=== PATIENT | female | born 1985 | race Caucasian/White ===

== ENCOUNTER → 2019-05-21 15:39 | Outpatient (BNVA) | payer OTHER, SELFPAY | PROVIDERS: Family Provider Family Medicine; PCP Family Medicine; Visit Provider Obstetrics & Gynecology | DX: Z01.89 Encounter for other specified special examinations (principal) | CPT/HCPCS: 84315 ==

== ENCOUNTER → 2019-05-26 15:07 | Outpatient (BNVA) | payer OTHER, SELFPAY | PROVIDERS: Family Provider Family Medicine; PCP Family Medicine; Visit Provider Obstetrics & Gynecology | DX: Z34.82 Encounter for supervision of other normal pregnancy, second trimester (principal) | CPT/HCPCS: 76816 ==

== ENCOUNTER → 2019-06-11 14:35 | Outpatient (BNVA) | payer OTHER, SELFPAY | PROVIDERS: Family Provider Family Medicine; PCP Family Medicine; Visit Provider Obstetrics & Gynecology | DX: O09.892 Supervision of other high risk pregnancies, second trimester (principal); Z3A.27 27 weeks gestation of pregnancy | CPT/HCPCS: 82950; 84315; 85027 ==

== ENCOUNTER → 2019-07-02 15:33 | Outpatient (BNVA) | payer OTHER, SELFPAY | PROVIDERS: Family Provider Family Medicine; PCP Family Medicine; Visit Provider Obstetrics & Gynecology | DX: Z01.89 Encounter for other specified special examinations (principal) | CPT/HCPCS: 84315 ==

== ENCOUNTER → 2019-07-16 11:09 | Outpatient (BNVA) | payer OTHER, SELFPAY | PROVIDERS: Family Provider Family Medicine; PCP Family Medicine; Visit Provider Obstetrics & Gynecology | DX: O09.893 Supervision of other high risk pregnancies, third trimester (principal); O36.5930 Maternal care for other known or suspected poor fetal growth, third trimester, not applicable or unspecified | CPT/HCPCS: 76816; 76820; 84315 ==

== ENCOUNTER → 2019-07-22 10:19 | Outpatient (BNVA) | payer OTHER, SELFPAY | PROVIDERS: Family Provider Family Medicine; PCP Family Medicine; Visit Provider Obstetrics & Gynecology | DX: O36.5930 Maternal care for other known or suspected poor fetal growth, third trimester, not applicable or unspecified (principal) | CPT/HCPCS: 76819; 76820 ==

== ENCOUNTER → 2019-07-28 08:49 | Outpatient (BNVA) | payer OTHER, SELFPAY | PROVIDERS: Family Provider Family Medicine; PCP Family Medicine; Visit Provider Obstetrics & Gynecology Female Pelvic Medicine and Reconstructive Surgery | DX: O36.5930 Maternal care for other known or suspected poor fetal growth, third trimester, not applicable or unspecified (principal) | CPT/HCPCS: 76819; 76820; 84315 ==

== ENCOUNTER → 2019-08-03 08:10 | Outpatient (BNVA) | payer OTHER, SELFPAY | PROVIDERS: Family Provider Family Medicine; PCP Family Medicine; Visit Provider Obstetrics & Gynecology | DX: Z36.89 Encounter for other specified antenatal screening (principal) | CPT/HCPCS: 76816; 76819 ==

== ENCOUNTER → 2019-08-13 10:23 | Outpatient (BNVA) | payer OTHER, SELFPAY | PROVIDERS: Family Provider Family Medicine; PCP Family Medicine; Visit Provider Obstetrics & Gynecology | DX: O09.893 Supervision of other high risk pregnancies, third trimester (principal); Z3A.35 35 weeks gestation of pregnancy | CPT/HCPCS: 76816; 76819; 76820; 84315; 87081 ==

== ENCOUNTER → 2019-08-20 09:33 | Outpatient (BNVA) | payer OTHER, SELFPAY | PROVIDERS: Family Provider Family Medicine; PCP Family Medicine; Visit Provider Obstetrics & Gynecology | DX: Z34.80 Encounter for supervision of other normal pregnancy, unspecified trimester (principal) | CPT/HCPCS: 76816; 76819; 76820; 84315; 87081 ==

== ENCOUNTER → 2019-08-27 08:57 | Outpatient (BNVA) | payer OTHER, SELFPAY | PROVIDERS: Family Provider Family Medicine; PCP Family Medicine; Visit Provider Obstetrics & Gynecology | DX: Z34.90 Encounter for supervision of normal pregnancy, unspecified, unspecified trimester (principal) | CPT/HCPCS: 76819; 76820; 84315 ==

== ENCOUNTER 2019-09-01 05:14 | Inpatient (IN) | payer OTHER, SELFPAY ==
[2019-09-01] VITALS (26 sets, daily range): BP systolic 97–117; BP diastolic 61–81; PULSE 54–74; RESP 16–18; TEMP 35.8–36.8; O2SAT 98–100; BMI 23.6
[2019-09-01] MEDS: lactated ringers 1,000 ML 999 ML IV ×2 (06:03→06:38)
[2019-09-01 06:04] LABS: Basophils % 0.6 %; Eosinophils # 0.2 10^3/uL (0.0-0.8); Eosinophils % 2.3 %; Hematocrit 35.4 % (37.0-47.0); Hemoglobin 12.2 g/dL (11.5-15.3); Lymphocytes # 1.9 10^3/uL (0.8-4.8); Lymphocytes % 26.7 %; Mean Corpuscular HGB Conc 34.5 g/dL (30.0-36.0); Mean Corpuscular Hemoglobin 33.2 pg (28.0-34.0); Mean Corpuscular Volume 96.2 fL (81-99); Mean Platelet Volume 10.7 fL (7.4-10.4); Monocytes # 0.7 10^3/uL (0.2-0.9); Monocytes % 10.3 %; Neutrophils # 4.2 10^3/uL (1.8-7.7); Neutrophils % 58.8 %; Nucleated Red Blood Cells % 0 %; Platelet Count 190 10^3/cmm (130-400); Red Blood Count 3.68 10^6/uL (4.1-5.3); Red Cell Distribution Width 13.3 % (12.1-15.1); White Blood Count 7.1 10^3/uL (4.0-10.0)
--- NOTE | 2019-09-01 06:29 | ANES.PREANE2 ---
Pre-Anesthetic Assessment Pre-Anesthetic Assessment: Height/Weight: Height 1.63 m Weight 62.596 kg Temp Resp 98.3 F 18 09/01/19 05:30 09/01/19 05:30 Proposed Procedure: Operation Date: 09/01/19 07:00 Proposed Procedures p Section Repeat With Bilateral tubal ligation with complete salpingectomy [id number] Z34.90 Z98.891 Z30.2(Bilateral) - Brian Harding MD Familial anesthetic complications: None Was Beta Collette taken within 24 hours: N/A Last intake: Intake Last Liquid Date 08/31/19 Last Liquid Time 00:00 Last Solid Date 08/31/19 Last Solid Time 21:00 Social: Social History: No alcohol and No tobacco Exam: Pre-Anes Outpt Exam: alert, oriented x 3, clear to auscultation bilaterally and regular rate & rhythm Airway: Cervical ROM: WNL MP: 1 Dentition: Full Pulmonary: Pulmonary: None reported CV/HEM: CV/HEM: Murmur : : None reported Hepatic: Hepatic: None reported GI: GI: GERD Metabolic: Comments: MTHFR mutation Musc/skel: Musc/skel: None reported Neuropsych: Neuropsych: None reported Anesthetic Plan: ASA status: 2 Anesthesia: Regional (specify below) Other: spinal Risk of > 500 ml blood loss (7ml/kg in children): Yes, adequate IV access and fluids planned Meds/Allergies Current Medications: Current Medications Generic Name Dose Route Start Last Admin Trade Name Freq PRN Reason Stop Dose Admin Lactated Ringer's 1,000 mls @ 999 m ls/hr 09/01/19 05:47 09/01/19 06:03 Lactated Ringers IV 999 mls/hr .Q1H1M PRN Administration ANESTHESIA PFSH Anesthesia PFSH: Social History Smoking and tobacco status: never smoked Alcohol intake: never Substance/Drug Use: never Marital status: Female Reproductive History: : 5 Data Anesthesia CBC & Chem 7: 09/01/19 05:40 Other Labs: Laboratory Results - last 48 hr 09/01/19 05:40 WBC 7.1 RBC 3.68 L Hgb 12.2 Hct 35.4 L MCV 96.2 MCH 33.2 MCHC 34.5 RDW 13.3 Plt Count 190 MPV 10.7 H Neut % (Auto) 58.8 Lymph % (Auto) 26.7 [place] % (Auto) 10.3 Eos % (Auto) 2.3 Baso % (Auto) 0.6 Neut # (Auto) 4.2 Lymph # (Auto) 1.9 [place] # (Auto) 0.7 Eos # (Auto) 0.2 Baso # (Auto) 0.0 Nucleated RBC % (auto) 0 Nucleated RBCs # 0.0 Cardiac Studies: No Data to Display
[2019-09-01] MEDS: famotidine 20 mg/2 mL INJ IVP (06:38)
[2019-09-01] MEDS: citric acid-sodium citrate 30 mL UDC PO (06:38)
[2019-09-01] MEDS: metoclopramide 5 mg/mL SDV 2 mL 10 MG IVP (06:38)
--- NOTE | 2019-09-01 07:04 | W.PM.OPSUD ---
Surgery/Procedure H&P Update DATE OF PROCEDURE: September 01, 2019 DATE H&P PERFORMED: 08/27/19 H&P UPDATE INFORMATION: I have reviewed H&P completed within last 30 days, I have examined patient prior to procedure, No changes to prior documentation and H&P is in [facility] on date indicated PREOP DIAGNOSIS: Previous section-declines , Undesired fertility PRIMARY INDICATION FOR PROCEDURE: Repeat section, Bilateral complete salpingectomy PLANNED PROCEDURE: Operation Date: 09/01/19 07:00 Proposed Procedures p Section Repeat With Bilateral tubal ligation with complete salpingectomy [id number] Z34.90 Z98.891 Z30.2(Bilateral) - Brian Harding MD
--- NOTE | 2019-09-01 09:17 | ANE.PACU2 ---
 Inpatient post-anesthesia follow up: Airway intact: Yes Vital signs: Temperature 98.3 F Pulse Rate 68 Respiratory Rate 18 Blood Pressure 106/68 Pulse Oximetry Oxygen Delivery Me thod Room Air Oxygen Flow Rate Fraction of Inspir ed Oxygen Hydration adequate: Yes Nausea and vomiting: No Pain level: 1 Mental status: Baseline
--- NOTE | 2019-09-01 09:23 | PM.OP ---
Operative Report Date of procedure: September 01, 2019 Pre-op Diagnosis: Previous section-declines , Undesired fertility Pre-op Diagnosis: Small for gestational age fetus complicating in third trimester, Advanced maternal age, term at 39-2/7 weeks gestation Post-op Diagnosis: 1. Previous section, declines , 2. Small for gestational age fetus complicating , 3. at 39-2/7 weeks gestation, 4. Advanced maternal age, 5. Undesired fertility, 6. Viable male infant Procedure Done: Repeat low transverse section, Complete bilateral salpingectomy. Specimens removed/disposition: Right and left fallopian tubes Surgeon: Brian Harding Parts Salesperson: Sushma Cueva MS3 Anesthesia: Other (Spinal) Estimated blood loss (mL): 700 Complications: None Findings: 1. Viable male , cephalic presentation, weighing 6 pounds 3 ounces (2815 g) with a length of 19 inches and Apgars of 9 at 1 minute and 9 at 5 minutes. 2. Normal-appearing uterus tubes and ovaries. 3. Posterior fundal subserosal fibroid measuring approximately the 2-1/2 cm in diameter. Brief History: Patient is a 34-year-old white female 5, para 2-0-2-2 with an LMP of 11/29/2018 and an EDC of 09/05/2019 based on LMP and consistent with ultrasound, which placed her at 39-2/7 weeks gestation. Patient presented to labor and delivery for repeat section. She had had 2 prior sections and was declining . She had also stated during that she did not want any further children and wanted to proceed with sterilization. Sterilization methods had been discussed with her and she wished to have both tubes completely removed. Questions were answered. Patient wished to proceed with surgery. Procedure: Patient was taken to the operating room where spinal anesthesia was obtained. She was prepped and draped in the usual sterile fashion in a dorsal supine position with a leftward tilt. [place] catheter and sequential compression boots had been placed prior to starting the case. A Pfannenstiel skin incision was made with a knife and carried down to the underlying fascia with the knife. Fascia was incised in the midline with the knife and extended laterally with [place] scissors. Superior aspect of the fascia was grasped with Ke[place] clamps, elevated, and sharply and bluntly dissected. The inferior aspect of the fascia was grasped with [place] clamps, elevated, and sharply and bluntly dissected. The rectus muscles were in the midline. Peritoneum was sharply entered. Peritoneal incision was extended both superiorly and inferiorly with good visualization of the bladder. Bladder blade was inserted. The vesicouterine peritoneum was tented up and sharply entered. It was extended laterally and the bladder flap was created digitally. Bladder blade was reinserted. A transverse incision was made with the knife in the lower uterine segment. Clear fluid was obtained upon entry into the uterine cavity. The infant's head was delivered and no nuchal cords were noted. The rest of the delivered atraumatically. Nose and mouth were suctioned with bulb suction. Cord was clamped and cut and the infant was handed off to Dr. Ramírez and the waiting nurses. Cord blood was obtained. Placenta was delivered via uterine massage. Patient received 20 units of Pitocin in the IV fluids. The uterus was exteriorized and cleared of clots and debris. The uterine incision was closed in a running locking fashion using 0 Vicryl suture. The uterine vessels at the edge of the incision were bleeding and tied with stitches above and below the level of the incision with 0 chromic suture incorporating the side of the uterus into the stitch. This brought the bleeding under control. The incision was imbricated using 0 Vicryl suture in a horizontal mattress fashion. The incision was inspected and noted to be hemostatic. The left fallopian tube was grasped with [place] clamps. The mesosalpinx was transilluminated, identifying the vessels coming to the tubes. Using 2-0 chromic suture, the vessels coming through the mesosalpinx to the fallopian tube were individually tied. The proximal end of the tube was tied with a free tie of 0 plain suture. The vessels at the distal end of the tube were tied with a free tie of 0 plain suture. The mesosalpinx was then cut and the tube completely excised. The right fallopian tube was grasped with [place] clamps. The mesosalpinx was transilluminated with no significant vessels noted within the mesosalpinx. The mesosalpinx was cut with electrocautery and the proximal end of the tube was tied with a free tie of 0 plain suture. The vessels at the distal end of the tube were tied with a free tie of 0 plain suture. The pedicle at the distal end was cut and the tube adjacent to the uterus was then cut, completely excising the tube. Posterior cul-de-sac was thoroughly irrigated and cleared of clots and blood. The uterus was returned to the abdomen. The uterine incision was irrigated and noted to be hemostatic. The gutters were cleared of clots and blood. The rectus muscles and peritoneum were reapproximated in the midline using interrupted stitches of 2-0 Vicryl suture. The muscle layer was irrigated and noted to be hemostatic. The fascia was reapproximated using 0 Vicryl suture in a running fashion. The subcutaneous layer was irrigated and brought to hemostasis using electrocautery. It was reapproximated using 3-0 plain suture in an interrupted fashion. Skin was reapproximated using 4-0 Vicryl suture in a subcuticular fashion. Steri-Strips were applied. Patient tolerated the procedures well. Sponge, needle, and instrument counts were correct. DRAINS: [place] catheter POSTOPERATIVE STATUS: The patient was left to recover in satisfactory condition
--- NOTE | 2019-09-01 10:02 | PC.NURSE ---
0900 pt remains in post op
[2019-09-01] MEDS: ketorolac 30 mg/mL INJ IVP (12:49)
--- NOTE | 2019-09-01 14:27 | PC.NURSE ---
1415 PT UP TO CHAIR DID VERY WELL.
[2019-09-01] MEDS: diphenhydrAMINE 50 mg/mL SDV 1mL 25 MG IVP (15:01)
[2019-09-01] MEDS: HYDROcodone-acetaminophen 5-325 mg Tablet PO (18:25)
[2019-09-01] MEDS: docusate sodium 100 mg Capsule PO ×3 (18:26→18:30)
[2019-09-01 22:04] LABS: Hematocrit 30.7 % (37.0-47.0); Hemoglobin 10.4 g/dL (11.5-15.3); Mean Corpuscular HGB Conc 33.9 g/dL (30.0-36.0); Mean Corpuscular Hemoglobin 33.3 pg (28.0-34.0); Mean Corpuscular Volume 98.4 fL (81-99); Platelet Count 156 10^3/cmm (130-400); Red Blood Count 3.12 10^6/uL (4.1-5.3); Red Cell Distribution Width 13.4 % (12.1-15.1); White Blood Count 9.8 10^3/uL (4.0-10.0)
[2019-09-02 05:00] VITALS: BP 111/70; PULSE 68; RESP 17; TEMP 36.4; O2SAT 99
[2019-09-02] MEDS: prenatal vitamin Capsule 1 CAP PO (09:18)
[2019-09-02] MEDS: docusate sodium 100 mg Capsule PO (09:18)
[2019-09-02 10:00] VITALS: BP 117/80; PULSE 69; RESP 16; TEMP 36.6; O2SAT 99
--- NOTE | 2019-09-02 10:07 | P.PN_ITS ---
Documented by User: Sushma Cueva 09/02/19 10:19 Subjective Subjective: Interval history: Walked the halls several times yesterday evening and this morning. Had some lightheadedness yesterday afternoon but has improved. is going well. She has some pain at her surgical site when walking and up to 5/10 in intensity, but it improves with rest. She has taken a few pain pills but feels the ibuprofen is doing a better job of controlling the pain. Her catheter came out yesterday afternoon. She tolerated solid foods at breakfast this morning. Vitals/I&O/Wt Last Vital Signs Temp 97.6 F 09/02/19 05:00 Pulse 68 09/02/19 05:00 Resp 17 09/02/19 05:00 BP 111/70 09/02/19 05:00 Pulse Ox 99 09/02/19 05:00 09/01/19 09/02/19 09/02/19 22:59 06:59 14:59 Intake Total 500 / 1500 Output Total 1000 / 1850 900 / 2750 Balance -500 / -350 -900 / -1250 Weight last 48 hrs Weight 138 lb Physical Exam Const: COMMON NORMALS: no acute distress, patient oriented x3 and alert GENERAL APPEARANCE: cooperative and comfortable HENMT: COMMON NORMALS: normocephalic, atraumatic and hearing grossly normal bilaterally HEAD & SCALP: normocephalic and atraumatic Eye: COMMON NORMALS: EOMs intact bilaterally Neck/C-Spine: COMMON NORMALS: full ROM and no JVD Chest: CHEST: Yes Symmetrical chest wall rise Resp: COMMON NORMALS: normal respiratory effort, No retractions and No use of accessory muscles Cardio: COMMON NORMALS: no JVD, regular rate, regular rhythm, S1 normal heart sound present, S2 normal heart sound present, No gallops present (Cardio), No murmurs present (Cardio) and No rub (Cardio) RATE: regular rate RHYTHM: regular rhythm HEART SOUNDS: S1 normal heart sound present and S2 normal heart sound present GI: COMMON NORMALS: negative for non-tender (tender to palpation ) INSPE CTION: Yes abdominal distension Extremity: COMMON NORMALS: normal to inspection and full ROM Neuro: COMMON NORMALS: patient oriented x3 SENSORIUM/ORIENTATION: Yes alert Psych: COMMON NORMALS: mental status grossly normal, Normal thought process present, cooperative, normal affect and speech normal SPEECH: Yes normal speech THOUGHT PROCESS: Normal thought process present Skin: COMMON NORMALS: no rashes or lesions noted GENERAL SKIN EXAM: no rashes or lesions noted Urinary Catheter Management^: [place]: Cath Placed During This Visit: yes, but has since been removed by the nurse Reason for Continuing Indwelling Catheter: Accurate Measurement of Urinary Output in Critically Ill Patients Urinary Catheter Date of Insertion: 09/01/19 Urinary Catheter Time of Insertion: 07:18 Date Urinary Catheter Removed: 09/01/19 Time Urinary Catheter Discontinued: 18:30 Data : 09/01/19 21:20 A&P Assessment and plan (1) Contraception management: S/P BTL Status: Acute Qualifiers: Contraceptive encounter type: other general counseling and advice Qualified Code(s): Z30.09 - Encounter for other general counseling and advice on contraception (2) Multigravida of advanced maternal age: S/P section Continue to advance diet as tolerated Continue pain medication as needed (Ledbetter 5-325 mg 1-2 tab PO Q4H PRN and ibuprofen as needed) Continue activity as tolerated with no lifting heavier than baby and no driving until off pain medications and comfortable Nothing in the vagina for 6 weeks Return to clinic in 2 weeks Status: Acute Qualifiers: Trimester: second trimester Qualified Code(s): O09.522 - Supervision of elderly multigravida, second trimester Coding Level of Care Code Acute Data Designer for Chg Fwd Exam Comprehensive Diagnoses Contraception management Z30. Contraceptive encounter type: other general counseling and advice Multigravida of advanced maternal age O09.522 Trimester: second trimester Previous , delivered, current hospitalization O34.219 Documented by User: Brian Harding MD 09/02/19 12:55 Subjective Subjective: Interval history: Reports doing well. States bleeding has slowed. Reports tolerating regular diet without nausea or vomiting. Reports passing flatus. Denies problems with urination. Denies lightheadedness or dizziness with ambulation. Reports pain is been well controlled. Denies shortness of breath or chest pains. Requesting to go home this afternoon if possible. Physical Exam Const: COMMON NORMALS: no acute distress, patient oriented x3 and well nourished Resp: COMMON NORMALS: clear to auscultation bilaterally AUSCULTATION: clear to auscultation bilaterally Cardio: COMMON NORMALS: regular rate, regular rhythm, No gallops present (Cardio) and No rub (Cardio) RATE: regular rate RHYTHM: regular rhythm GI: COMMON NORMALS: Soft to palpation, No hepatosplenomegaly present and no masses (Except for mildly tender uterus approximately 2 fingerbreadths below umbilicus.) INSPECTION: Yes incision (Dressing dry.) AUSCULTATION: Yes normoactive bowel sounds PALPATION: Yes Soft to palpation, Yes Tenderness to palpation present (GI) (Lower abdomen.) and Yes No hepatosplenomegaly present Extremity: COMMON NORMALS: no calf tenderness GENERAL: Yes edema (1+ lower extremity) Neuro: COMMON NORMALS: patient oriented x3 Psych: APPEARANCE: Yes grossly normal MOOD & AFFECT: Yes euthymic mood Urinary Catheter Management^: [place]: Cath Placed During This Visit: no Data : 09/01/19 21:20 A&P Assessment and plan (1) Previous , delivered, current hospitalization: Status: Acute Additional A&P Information Postoperative day 1, status post repeat section. Patient doing well overall. Pain currently controlled with Duramorph. Has started oral medications. Increase activities today. May shower. If does well through the day, then probable discharge this evening. After medical student, Sushma Cueva, MS3, obtained patient's History Of Present Illness, I reviewed the pertinent information with the patient regarding HPI and her history. I was physically present for the performance of the Physical Exam and reviewed the Plan of Care with the patient. I personally reviewed the documented note with the medical student and agree with the documented History, Physical Exam, and Assessment and Plan. Attestations Medical Necessity Statement*: Patient had section yesterday. Coding Level of Care Code Acute Data Designer for Dianag Fwd Exam Comprehensive Diagnoses Contraception management Z30.09 Contraceptive encounter type: other general counseling and advice Multigravida of advanced maternal age O09.522 Trimester: second trimester Previous , delivered, current hospitalization O34.219
--- NOTE | 2019-09-02 11:15 | ANE.PACU2 ---
Inpatient post-anesthesia follow up: Airway intact: Yes Vital signs: Temperature 97.6 F Pulse Rate 68 Respiratory Rate 17 Blood Pressure 111/70 Pulse Oximetry 99 Oxygen Delivery Me thod Room Air Oxygen Flow Rate Fraction of Inspir ed Oxygen Hydration adequate: Yes Nausea and vomiting: No Pain level: 2 Mental status: Baseline Additional Comments: urinating ok, walking, no LE weakness or numbness, no signs of infection at spinal site, no headaches
[2019-09-02] MEDS: acetaminophen 325 mg Tablet 650 MG PO (14:24)
[2019-09-02 16:00] VITALS: BP 96/57; PULSE 69; RESP 16; TEMP 36.8; O2SAT 99
[2019-09-02] MEDS: HYDROcodone-acetaminophen 5-325 mg Tablet PO (16:28)
--- NOTE | 2019-09-02 17:36 | PM.DCS ---
Discharge Providers Date of Admission: 09/01/19 05:14 Date of Discharge: September 02, 2019 Attending Provider at Admission: Brian Harding MD Attending Provider at Discharge: Brian Harding MD Primary Care Provider: Luis Antonio Mena MD Diagnoses at Discharge Discharge Diagnosis (1) Previous , delivered, current hospitalization: Status: Acute Reason for Visit Reason for Visit: Reason For Visit: Intrauterine ,Previous ceserean section,U Hospital Course Hospital Course: Patient is a 34-year-old white female 5, para 2-0-2-2 with an LMP of 11/29/2018 and an EDC of 09/05/2019 based on LMP and consistent with ultrasound, which placed her at 39-2/7 weeks gestation. Patient had had a prior section and was declining . Her had also been complicated by a small for gestational age fetus and advanced maternal age. Patient had also decided that she did not want any further children and wanted to proceed with sterilization with complete removal of the tubes at the time of her section. A repeat low transverse section with complete bilateral salpingectomy was performed on 09/01/2019. She had a viable male weighing 6 pounds 3 ounces (2815 g) with a length of 19 inches and Apgars of 9 at 1 minute and 9 at 5 minutes. Patient tolerated procedure well. She was given Duramorph in her spinal for pain management following surgery. On postoperative day 1, patient was doing well. She was tolerating a regular diet without nausea vomiting. Her pain had been well controlled that morning with Duramorph. She denied any shortness of breath or chest pains. She was ambulating without lightheadedness or dizziness. She was urinating without difficulty. Her bleeding was slowing. She was afebrile with stable vital signs. Her activities were increased through the day and she was switched to oral pain medication. This did well for her. She was requesting to be released on the evening of postoperative day 1 and she was discharged home. Discharge instructions was discussed with the patient. She was to follow-up in the office in 2 and 6 weeks following surgery. Physical Exam Urinary Catheter Management^: [place]: Cath Placed During This Visit: yes, but has since been removed by the nurse Reason for Continuing Indwelling Catheter: Accurate Measurement of Urinary Output in Critically Ill Patients Urinary Catheter Date of Insertion: 09/01/19 Urinary Catheter Time of Insertion: 07:18 Date Urinary Catheter Removed: 09/01/19 Time Urinary Catheter Discontinued: 18:30 Discharge Data Data Completed and Pending: Pending at discharge Category Date Time Status Pathology: Surgic al [PTH] Routine Pth 09/02/19 15:16 Ordered Labs from last 24 hours 09/01/19 21:20 WBC 9.8 RBC 3.12 L Hgb 10.4 L Hct 30.7 L MCV 98.4 MCH 33.3 MCHC 33.9 RDW 13.4 Plt Count 156 MPV 11.0 H Vitals: Last Vital Signs Temp 98.3 F 09/02/19 16:00 Pulse 69 09/02/19 16:00 Resp 16 09/02/19 16:00 BP 96/57 09/02/19 16:00 Pulse Ox 99 09/02/19 16:00 Discharge Plan Discharge Patient Disposition: Home, Self-Care Condition: Stable Prescriptions: New ibuprofen 800 mg tablet 800 mg PO TID PRN (Reason: pain) Qty: 40 RF: 0 hydrocodone-acetaminophen 5-325 mg Tablet 1 - 2 tab PO Q6H PRN (Reason: Moderate To Severe Pain) Qty: 20 RF: 0 Continued levomefolate calcium [L-Methylfolate] 7.5 mg tablet 7.5 mg PO DAILY RF: 0 vitamin B complex [B Complex-Vitamin B12] Tablet 1 tab PO DAILY RF: 0 Discharge Orders: Discharge Order (Routine); Ordered 09/02/19 Ordered By: Brian Harding Referrals: Brian Harding MD [Physician] - (* Your 2 week incision check is with Dr. Harding on 09/18/2019 at 9:30am. * Your 6 week follow up appointment is with Dr. Harding on 10/15/2019 at 12:45pm.) Discharge Diet: Regular Discharge Activity: Limit activity as instructed Patient Instructions: OB WHC, OB Discharge Report, OB Food/Drug Interaction Guide, OB Care at Home, OB Proud Parent Packet Discharge Date/Time: 09/02/19 18:05 Discharge Attestations Time Spent in Discharge Care*: less than 30 min Quality Metrics Clinical Quality Measures During this hospital stay, did patient experience: None Coding Level of Care Code Acute Flash Ranging Crewmember for Chg Fwd Diagnoses Previous , delivered, current hospitalization O34.219
[2019-09-02 18:10] VITALS: BP 96/57; PULSE 69; RESP 16; TEMP 36.8; O2SAT 99
== END 2019-09-02 18:05 | disposition home or self-care (01) | DRG 785 ==
PROVIDERS: Admitting Provider Obstetrics & Gynecology; Family Provider Family Medicine; PCP Family Medicine; Visit Provider Obstetrics & Gynecology
PROC: 10D00Z1 Extraction of Products of Conception, Low, Open Approach (ICD-10-PCS; CPT 59514; principal; 2019-09-01 07:00)
DX: O34.211 Maternal care for low transverse scar from previous cesarean delivery (principal); N85.8 Other specified noninflammatory disorders of uterus; Z3A.39 39 weeks gestation of pregnancy; Z37.0 Single live birth; Z30.2 Encounter for sterilization; O36.5930 Maternal care for other known or suspected poor fetal growth, third trimester, not applicable or unspecified
CPT/HCPCS: 12345; 36415; 51702; 59025; 59409; 85025; 85027; 86900; 88302; 96374; 96375; 99211; J0690; J1200; J1885; J2274; J2370; J2590; J2765; J3490

== ENCOUNTER → 2019-12-08 14:23 | Outpatient (BNVA) | payer OTHER, SELFPAY | PROVIDERS: Family Provider Family Medicine; PCP Family Medicine; Visit Provider Nurse Practitioner Family | DX: Z11.59 Encounter for screening for other viral diseases (principal) | CPT/HCPCS: 87635 ==